=== PATIENT | female | born 1935 | race Caucasian/White ===

== ENCOUNTER 2020-07-21 11:22 | Outpatient (CLI) | payer MEDICARE ==
[~2020-07-21 11:22] MED LIST: ASPI-496 PO; LISI30TA4 PO; LORA-446 PO; LOVA20TA2 PO; PROP20TA PO
== END 2020-07-21 23:59 | disposition home or self-care (01) ==
LOC: CFH 11:22
PROVIDERS: ATTEND Family Medicine
DX: N64.4 Mastodynia (principal)
CPT/HCPCS: 76642; 77062; 77066; G0279